=== PATIENT | female | born 1950 | race Hispanic/Latino ===

== ENCOUNTER 2017-11-21 08:44 | Outpatient (CLI) | payer MEDICARE ==
[2017-11-21 11:13] LABS: Anion Gap 13 mmol/L (10-20); BUN (Urea Nitrogen) 21 mg/dL (9.8-20.1); Calc. Creatinine Clearance 0 mL/min (70-130); Calcium 9.3 mg/dL (7.8-10.44); Carbon Dioxide 21 mmol/L (23-31); Chloride 107 mmol/L (98-107); Estimated GFR-MDRD 68; Glucose 135 mg/dL (80-115); Sodium 135 mmol/L (136-145)
== END 2017-11-21 08:45 | disposition home or self-care (01) ==
LOC: LABBT 08:44
PROVIDERS: ATTEND Surgery
DX: Z01.812 Encounter for preprocedural laboratory examination (principal); K43.2 Incisional hernia without obstruction or gangrene
CPT/HCPCS: 80048

== ENCOUNTER 2017-12-01 09:48 | Day surgery (SDC) | payer MEDICARE ==
[2017-11-21 09:02] VITALS: BMI 46.9
[2017-12-01 10:21] LABS: #Eosinphils 0.2 thou/uL (0.0-0.7); #Lymphocytes 1.7 thou/uL (1.20-3.40); #Monocytes 0.4 thou/uL (0.11-0.59); #Neutrophils 4.7 thou/uL (1.40-6.50); %Basophils 0.6 % (0.0-1.0); %Eosinophils 2.9 % (0.0-10.0); %Lymphocytes 23.8 % (21.0-51.0); %Monocytes 5.6 % (0.0-10.0); %Neutrophils 67.1 % (42.0-75.0); Mean Corpuscular HGB CONC 31.8 g/dL (32.0-36.0); Mean Corpuscular Hemoglobin 30.4 pg (27.0-31.0); Mean Corpuscular Volume 95.6 fl (81.0-99.0); Mean Platelet Volume 9.2 fL (7.4-10.4); Platelet Count 229 thou/uL (130-400); RBC Distribution Width 12.5 % (11.5-14.5); Red Blood Cell (RBC) Count 3.95 mill/uL (4.20-5.40)
[2017-12-01 10:45] LABS: Anion Gap 11 mmol/L (10-20); BUN (Urea Nitrogen) 24 mg/dL (9.8-20.1); Calc. Creatinine Clearance 101 mL/min (70-130); Calcium 9.5 mg/dL (7.8-10.44); Carbon Dioxide 24 mmol/L (23-31); Chloride 106 mmol/L (98-107); Estimated GFR-MDRD 69; Glucose 119 mg/dL (80-115); Potassium 4.9 mmol/L (3.5-5.1); Sodium 136 mmol/L (136-145)
[2017-12-01] MEDS ORDERED: CEFAZOLIN/Water 2 GM/20 ML SYRINGE ONE (11:14)
[2017-12-01] MEDS ORDERED: Bupivacaine/Epinephrine 0.25% 30 ML VIAL ONE (11:30)
[2017-12-01] MEDS ORDERED: Fentanyl 250 MCG/5 ML VIAL ONE (12:14)
[2017-12-01] MEDS ORDERED: Midazolam HCl 2 mg/2 ml Vial ONE (12:14)
[2017-12-01] MEDS ORDERED: Fentanyl 100 MCG/2 ML VIAL ONE ×2 (14:29→15:12)
[2017-12-01] MEDS ORDERED: Ondansetron HCl/PF 4 MG/2 ML Vial ONE ×2 (15:09→16:20)
[2017-12-01] MEDS ORDERED: Promethazine HCl 25 MG/ML VIAL ONE (15:59)
[2017-12-01] MEDS ORDERED: Lidocaine 1% PF 5 ML VIAL ONE (16:20)
[2017-12-01] MEDS ORDERED: Dexamethasone 20 MG/5 ML VIAL ONE (16:20)
[2017-12-01] MEDS ORDERED: Propofol 200 MG/20 ML VIAL ONE (16:20)
[2017-12-01] MEDS ORDERED: PHENYLEPHRINE-NS 100 MCG/ML 10 ML SYRINGE ONE (16:20)
[2017-12-01] MEDS ORDERED: Glycopyrrolate 0.2 MG/ML 5 ML SYRINGE ONE (16:20)
[2017-12-01] MEDS ORDERED: ePHEDrine/0.9% NaCl/PF SYRINGE 50 mg/10 ml ONE (16:20)
[2017-12-01] MEDS ORDERED: HYDROcodone/Acetaminophen 5/325 mg Tablet ONE (17:48)
--- NOTE | 2017-12-02 09:51 | OP ---
DATE OF PROCEDURE: 12/01/2017 PREOPERATIVE DIAGNOSIS: Incisional hernia. POSTOPERATIVE DIAGNOSIS: Incisional hernia. PROCEDURE: Laparoscopic da Yoselin robot incisional hernia repair with mesh, 12 cm Symbotex. SURGEON: Fredrick Zarate M.D. ANESTHESIA: General. ESTIMATED BLOOD LOSS: Minimal. COMPLICATIONS: None. SPECIMEN: None. FINDINGS: Two hernias each 3 cm in diameter. TECHNIQUE: The patient was taken to the operating room and placed supine on the table. After genera l anesthetic is obtained, Loo was placed, and the abdomen is prepped and draped in a sterile fashio n. Left subcostal 5-mm Optiview trocar was placed in the usual fashion without injury. High-flow pn eumoperitoneum was obtained. Left and right upper abdominal lateral 8 mm robot ports were placed und er direct visualization. The 5 mm subcostal port is switched out to a 12-mm applied medical port. T he applied medical port is the camera port. All ports were docked to the robot. The surgeon goes to the console. There is some omentum that was reduced from the hernia. The posterior abdominal wall adhesions were taken down sharply without injury. A V-Loc suture is used to close each fascial defec t under no tension. A 12 cm Symbotex mesh brought into the sterile field. The needle from the V-Loc is used to hold it up against the posterior abdominal wall. The mesh side is placed up against the posterior fascia. The nonadherence side, left, against the abdominal contents down. A 2-0 double-ar med V-Loc suture is used starting at the 12 o'clock position to sew the edges of the mesh circumferen tially to the posterior fascia. These were overlapped at the 6 o'clock position and cut. All 4 need les removed from the abdomen. No ongoing bleeding, no injury to any intraabdominal structures. All port sites are infiltrated using local anesthetic. The 12-mm trocar site was closed using GraNee nee dle and 0 Vicryl tie. All pneumoperitoneum was let down. A 4-0 Monocryl and Dermabond used to close all skin incisions. The was patient en route to recovery in stable condition. All sponge counts, n eedle counts, lap counts are correct.
== END 2017-12-01 18:10 | disposition home or self-care (01) ==
LOC: SDC 09:48
PROVIDERS: ATTEND Surgery
PROC: 0WQF4ZZ Repair Abdominal Wall, Percutaneous Endoscopic Approach (ICD-10-PCS; principal; 2017-12-01)
PROC: 8E0W4CZ Robotic Assisted Procedure of Trunk Region, Percutaneous Endoscopic Approach (ICD-10-PCS; 2017-12-01)
DX: K43.2 Incisional hernia without obstruction or gangrene (principal); Z91.048 Other nonmedicinal substance allergy status; Z91.041 Radiographic dye allergy status; Z98.890 Other specified postprocedural states
CPT/HCPCS: 36415; 80048; 85025; 96374; J1100; J2001; J2250; J2405; J2550; J2704; J3010

== ENCOUNTER 2018-10-29 13:17 | Outpatient (CLI) | payer MEDICARE ==
--- NOTE | 2018-10-29 13:40 | RAD ---
TWO VIEW CHEST: History: Dyspnea. Comparison: 07-04-15 FINDINGS: Mild cardiomegaly and mild vascular engorgement. These findings have a similar appearance to the prio r study. There is some mild stranding in both lower lungs which were also present on the prior study. There is no evidence of focal infiltrate. Mild blunting of the posterior gutters may indicate small effusions. IMPRESSION: Cardiomegaly with mild vascular congestion, similar appearance to the prior study. POS: [facility]
== END 2018-10-29 13:18 | disposition home or self-care (01) ==
LOC: RAD 13:17
PROVIDERS: ATTEND Internal Medicine Pulmonary Disease
DX: R06.00 Dyspnea, unspecified (principal); I51.7 Cardiomegaly; R09.89 Other specified symptoms and signs involving the circulatory and respiratory systems
CPT/HCPCS: 71046

== ENCOUNTER 2018-11-04 12:40 | Outpatient (CLI) | payer MEDICARE ==
--- NOTE | 2018-11-04 13:00 | RAD ---
THREE VIEWS LEFT ANKLE: Date: 11-04-18 History: Left ankle pain for one month. No history of trauma. FINDINGS: The ankle mortise is congruent. No fracture or dislocation is seen. Plantar calcaneal enthesophyte is seen. There is mild subcutaneous soft tissue swelling seen about the ankle. IMPRESSION: 1. No acute osseous abnormality left ankle. 2. Mild subcutaneous soft tissue swelling. POS: [facility]
== END 2018-11-04 12:41 | disposition home or self-care (01) ==
LOC: BICRAD 12:40
PROVIDERS: ATTEND Podiatrist
DX: M25.572 Pain in left ankle and joints of left foot (principal); M79.89 Other specified soft tissue disorders

== ENCOUNTER 2019-05-19 09:42 | Outpatient (CLI) | payer MEDICARE ==
--- NOTE | 2019-05-19 12:27 | BD ---
DEXA BONE DENSITY STUDY: Date: 05/19/19 HISTORY: Osteoporosis screening. Asymptomatic menopausal state. COMPARISON: DEXA study from 2006. FINDINGS: Lumbar Spine: BMD (g/cm2) L1 0.804 T-Score: -1.7 Z-Score: 0.2 L2 0.807 T-Score: -2.0 Z-Score: 0.1 L3 0.665 T-Score: -3.8 Z-Score: -1.6 L4 0.688 T-Score: -3.4 Z-Score: -1.1 L1-L4 0.737 T-Score: -2.8 Z-Score: -0.7 Change from the 2006 study is -10.3%. Left Femoral Neck: 0.458 T-Score: -3.5 Z-Score: -1.7 Total Femur: 0.716 T-Score: -1.9 Z-Score: -0.3 Change from the 2007 study is -8.3%. WHO Classification: Osteoporosis. IMPRESSION: Osteoporosis with elevated fracture risk. POS: [facility]
== END 2019-05-19 09:43 | disposition home or self-care (01) ==
LOC: BICMAMMO 09:42
PROVIDERS: ATTEND Internal Medicine
DX: Z13.820 Encounter for screening for osteoporosis (principal); Z78.0 Asymptomatic menopausal state; M81.0 Age-related osteoporosis without current pathological fracture
CPT/HCPCS: 77080

== ENCOUNTER 2019-07-14 11:50 | Outpatient (CLI) | payer MEDICARE ==
--- NOTE | 2019-07-14 13:05 | MMO ---
Bilateral MAMMO Bilat Screen [facility]. CLINICAL HISTORY: Patient is 68 years old and is seen for screening. The patient has no family history of breast cancer. The patient has no personal history of cancer. VIEWS: The views performed were: bilateral craniocaudal with tomosynthesis and bilateral mediolateral oblique with tomosynthesis. This study has been interpreted with the assistance of computer-aided detection. MAMMOGRAM FINDINGS: The breasts are heterogeneously dense, which could obscure a lesion on mammography. There are no suspicious masses, suspicious calcifications, or new areas of architectural distortion. IMPRESSION: THERE IS NO MAMMOGRAPHIC EVIDENCE OF MALIGNANCY. A ROUTINE FOLLOW-UP MAMMOGRAM IN 1 YEAR IS RECOMMENDED. THE RESULTS OF THIS EXAM WERE SENT TO THE PATIENT. ACR BI-RADS Category 1 - Negative MAMMOGRAPHY NOTE: 1. A negative mammogram report should not delay a biopsy if a dominant of clinically suspicious mass is present. 2. Approximately 10% to 15% of breast cancers are not detected by mammography. 3. Adenosis and dense breasts may obscure an underlying neoplasm. Reported by: JOSE AGUILAR MD Electonically Signed: [id number]
== END 2019-07-14 11:51 | disposition home or self-care (01) ==
LOC: BICMAMMO 11:50
PROVIDERS: ATTEND Internal Medicine
DX: Z12.31 Encounter for screening mammogram for malignant neoplasm of breast (principal)
CPT/HCPCS: 77063; 77067